=== PATIENT | female | born 1950 | race Caucasian/White ===

== ENCOUNTER 2022-06-29 20:46 | Emergency (ER) | payer MEDICARE ==
[~2022-06-29] VITALS: Ht 160 cm; Wt 72.6 kg
[2022-06-29] MEDS ORDERED: KETOROLAC TROMETHAMINE 30 MG/ML VIAL IV STA (22:02)
[2022-06-29] MEDS ORDERED: ACETAMINOPHEN 325 MG TAB PO ONE (22:15)
[2022-06-29] MEDS ORDERED: SODIUM CHLORIDE 0.9% 1000ML 1,000 ML IV SCH (22:15)
[2022-06-29] MEDS ORDERED: IOPAMIDOL 370 MG/ML 100 ML INFUS..BTL INJ ONE (22:44)
[2022-06-30] MEDS ORDERED: DICLOFENAC SODI50 MG PO (00:05)
[2022-06-30] MEDS ORDERED: METHOCARBAMOL500 MG PO (00:06)
== END 2022-06-30 00:15 | disposition home or self-care (01) ==
LOC: FSED 20:55
DX: R50.9 Fever, unspecified (principal); S39.012A Strain of muscle, fascia and tendon of lower back, initial encounter; R10.30 Lower abdominal pain, unspecified; I10 Essential (primary) hypertension; Z86.73 Personal history of transient ischemic attack (TIA), and cerebral infarction without residual deficits
CPT/HCPCS: 74177; 80048; 80076; 81003; 85025; 99284; J1885; J7030; Q9967